=== PATIENT | female | born 1950 | race Caucasian/White ===

== ENCOUNTER → 2020-04-16 10:00 | Outpatient (CLI) | payer MEDICARE, SELFPAY ==
--- NOTE | ~2020-04-16 | MR_ITS ---
EXAMINATION: MR foot RT wo con DATE: 04/16/2020 10:50 INDICATION: Right foot pain TECHNIQUE: Magnetic resonance imaging (MRI) of the right foot was performed without intravenous contr ast. The toes are excluded on the sagittal and coronal images. Sequences included sagittal T1-weighte d FSE, sagittal fluid sensitive FSE STIR, coronal PD-weighted FS FSE, coronal T1-weighted FSE, axial PD-weighted FS FSE, and axial PD-weighted FSE. COMPARISON: Right foot radiographs dated 04/06/2020 FINDINGS: Bone alignment is normal. No fracture. There is prominent marrow edema and mild cystic change underly ing the medial margin of the talar dome with appearance favoring osteoarthritis with overlying chondr omalacia as the etiology rather than an osteochondral lesion. Additional small foci of likely osteoar thritis related mild subarticular edema at the the central navicular articular surface at the talonav icular joint and at the medial cuneiform at its articulation with the navicula. There is an approxima tely 10 x 8 mm region of low signal intensity mild thickening of the plantar aponeurosis immediately underlying the marker indicating the region of concern which is plantar to the medial cuneiform and c onsistent with a plantar fibroma. The medial and lateral stabilizing ligaments of the ankle are valeria l. The flexor and extensor tendons are normal. Intrinsic musculature of the foot is normal. Evident o nly on the axial images is osteoarthritis at the first metatarsophalangeal joint with additional suba rticular edema at the base of the first proximal phalanx. Postoperative change of prior osteotomy of the head of the right fifth proximal phalanx. IMPRESSION: 1. The lump of concern at the plantar aspect of the right foot corresponds to a small region of mild focal thickening of the plantar aponeurosis consistent with plantar fibroma. 2. Mild polyarticular osteoarthritis as detailed above. Reviewed, dictated and finalized at location B. IMPRESSION: 1. The lump of concern at the plantar aspect of the right foot corresponds to a small region of mild focal thickening of the plantar aponeurosis consistent wi th plantar fibroma. 2. Mild polyarticular osteoarthritis as detailed above.
== END ==
PROVIDERS: Visit Provider Orthopaedic Surgery
DX: M19.071 Primary osteoarthritis, right ankle and foot (principal)
CPT/HCPCS: 73718

== ENCOUNTER 2020-05-11 14:07 | Outpatient (CLI) | payer MEDICARE, SELFPAY ==
--- NOTE | ~2020-05-11 | MM_ITS ---
EXAMINATION: MM screening [facility] BI w nola HISTORY: Screening mammogram TECHNIQUE: Craniocaudal and mediolateral oblique 3-D tomosynthesis images were obtained and synthetic 2-D images were generated. CAD analysis was submitted and interpreted. COMPARISON: 03/31/2019, 11/21/2017, 08/17/2016 BREAST PARENCHYMAL COMPOSITION: There are scattered areas of fibroglandular density. FINDINGS: A stable mass in the subareolar aspect of the right breast is again noted, consistent with a benign finding. There is no evidence of suspicious mass, calcification, or architectural distortion to suggest malignancy in either breast. There has been no suspicious interval change. IMPRESSION: 1. No mammographic evidence of malignancy. 2. Recommend routine screening mammography in one year. BI-RADS Category 2: Benign finding(s). Reviewed, dictated and finalized at location A. FAT FRY COOK
== END 2020-05-11 14:08 | disposition home or self-care (01) ==
LOC: ANHIMG 14:12
PROVIDERS: PCP Family Medicine; Visit Provider Obstetrics & Gynecology
DX: Z12.31 Encounter for screening mammogram for malignant neoplasm of breast (principal)
CPT/HCPCS: 77063; 77067

== ENCOUNTER 2021-05-17 15:36 | Outpatient (CLI) | payer MEDICARE, SELFPAY ==
--- NOTE | ~2021-05-17 | MM_ITS ---
EXAMINATION: MM screening [facility] BI w nola HISTORY: Screening mammogram TECHNIQUE: Craniocaudal and mediolateral oblique 3-D tomosynthesis images were obtained and synthetic 2-D images were generated. CAD analysis was submitted and interpreted. COMPARISON: 04/10/2020, 03/31/2019, 11/21/2017 BREAST PARENCHYMAL COMPOSITION: There are scattered areas of fibroglandular density. FINDINGS: Again noted is a stable mass in the subareolar aspect of the right breast, consistent with a benign finding. There is no evidence of suspicious mass, calcification, or architectural distortion to suggest malignancy in either breast. There has been no suspicious interval change. IMPRESSION: 1. No mammographic evidence of malignancy. 2. Recommend routine screening mammography in one year. BI-RADS Category 2: Benign finding(s). Reviewed, dictated and finalized at location A. RNMENT GAUGER
== END 2021-05-17 15:37 | disposition home or self-care (01) ==
LOC: ANHIMG 15:37
PROVIDERS: PCP Physician Assistant; Visit Provider Obstetrics & Gynecology
DX: Z12.31 Encounter for screening mammogram for malignant neoplasm of breast (principal)
CPT/HCPCS: 77063; 77067

== ENCOUNTER 2022-08-16 13:37 | Outpatient (CLI) | payer MEDICARE, SELFPAY ==
--- NOTE | ~2022-08-16 | MM_ITS ---
EXAMINATION: MM screening [facility] BI w nola HISTORY: Screening mammogram TECHNIQUE: Craniocaudal and mediolateral oblique 3-D tomosynthesis images were obtained and synthetic 2-D images were generated. CAD analysis was submitted and interpreted. COMPARISON: 05/17/2021, 05/11/2020, 03/31/2019 bilateral screening mammogram examinations BREAST PARENCHYMAL COMPOSITION: There are scattered areas of fibroglandular density. FINDINGS: There is no evidence of suspicious mass, calcification, or architectural distortion to sugg est malignancy in either breast. There has been no suspicious interval change. IMPRESSION: 1. No mammographic evidence of malignancy. 2. Recommend routine screening mammography in one year. BI-RADS Category 1: Negative Reviewed, dictated and finalized at location A. N STATION AGENT
== END 2022-08-16 13:38 | disposition home or self-care (01) ==
PROVIDERS: PCP Physician Assistant; Visit Provider Physician Assistant
DX: Z12.31 Encounter for screening mammogram for malignant neoplasm of breast (principal)
CPT/HCPCS: 77063; 77067

== ENCOUNTER → 2023-08-30 13:39 | Outpatient (CLI) | payer MEDICARE, SELFPAY ==
--- NOTE | ~2023-08-30 | XR_ITS ---
EXAMINATION: XR shoulder RT min 2V INDICATION: Right shoulder pain TECHNIQUE: Four views of the right shoulder are submitted. COMPARISON: 05/31/2012 FINDINGS: Normal alignment. No fracture. Glenohumeral and acromioclavicular joint spaces are normal. Soft tissues are unremarkable. IMPRESSION: 1. No acute osseous abnormality. Reviewed, dictated and finalized at location F. ITECTURAL DESIGN PROFESSOR
--- NOTE | ~2023-08-30 | XR_ITS ---
EXAMINATION:XR_[id number]_CR DATE: 08/30/2023 14:00 INDICATION: Neck pain TECHNIQUE: AP, lateral, and odontoid views of the cervical spine are provided. COMPARISON: 05/31/2012 FINDINGS: There are 2 mm of anterolisthesis of C4 on C5. There is moderate loss of intervertebral dis c space height at C5-C6 and mild loss of disc space height at C3-4 and C6-7. The odontoid process is intact. No fracture is identified. The vertebral body heights are maintained. There is moderate uncov ertebral joint osteoarthritis on the right at C5-6. Prevertebral soft tissues are normal. IMPRESSION: 1. Moderate cervical spondylosis without acute findings. Reviewed, dictated and finalized at location F. GER ANALYTICAL
== END ==
PROVIDERS: PCP Chiropractor; Visit Provider Family Medicine
DX: M25.511 Pain in right shoulder (principal); M43.02 Spondylolysis, cervical region
CPT/HCPCS: 72040; 73030

== ENCOUNTER 2023-10-17 13:04 | Outpatient (CLI) | payer MEDICARE, SELFPAY ==
--- NOTE | ~2023-10-17 | MM_ITS ---
EXAMINATION: MM screening [facility] BI w nola HISTORY: Screening TECHNIQUE: Craniocaudal and mediolateral oblique 3-D tomosynthesis images were obtained and synthetic 2-D images were generated. CAD analysis was submitted and interpreted. COMPARISON: Comparison to multiple prior studies sequentially, with oldest reviewed study dated 05/02. BREAST PARENCHYMAL COMPOSITION: Not dense: There are scattered areas of fibroglandular density. FINDINGS: There is no evidence of suspicious mass, calcification, or architectural distortion to sugg est malignancy in either breast. There has been no suspicious interval change. IMPRESSION: 1. No mammographic evidence of malignancy. 2. Recommend routine screening mammography in one year. BI-RADS Category 1: Negative Reviewed, dictated and finalized at location B.
== END 2023-10-17 13:05 | disposition home or self-care (01) ==
LOC: ANHIMG 13:06
PROVIDERS: PCP Family Medicine; Visit Provider Obstetrics & Gynecology
DX: Z12.31 Encounter for screening mammogram for malignant neoplasm of breast (principal)
CPT/HCPCS: 77063; 77067

== ENCOUNTER 2024-03-24 12:05 | Outpatient (CLI) | payer MEDICARE, SELFPAY ==
[2024-03-24 12:35] LABS: Cholesterol 279 mg/dL (0-200); HDL Direct 71 mg/dL; Triglycerides 116 mg/dL (<150)
[2024-03-24 12:46] LABS: LDL Cholesterol Direct 154 mg/dL
== END 2024-03-24 12:06 | disposition home or self-care (01) ==
PROVIDERS: PCP Family Medicine; Visit Provider Family Medicine
DX: E78.2 Mixed hyperlipidemia (principal)
CPT/HCPCS: 36415; 80061

== ENCOUNTER 2024-11-19 13:37 | Outpatient (CLI) | payer MEDICARE, SELFPAY ==
--- NOTE | ~2024-11-19 | MM_ITS ---
EXAMINATION: MM screening fang BI w nola HISTORY: Screening TECHNIQUE: Craniocaudal and mediolateral oblique 3-D tomosynthesis images were obtained and synthetic 2-D images were generated. CAD analysis was submitted and interpreted. COMPARISON: Comparison to multiple prior studies sequentially, with oldest reviewed study dated 11/21. BREAST PARENCHYMAL COMPOSITION: Not dense: There are scattered areas of fibroglandular density. FINDINGS: There is no evidence of suspicious mass, calcification, or architectural distortion to sugg est malignancy in either breast. There has been no suspicious interval change. IMPRESSION: 1. No mammographic evidence of malignancy. 2. Recommend routine screening mammography in one year. BI-RADS Category 1: Negative Reviewed, dictated and finalized at location B.
--- OUTSIDE RECORDS SUMMARY | 2024-11-19 13:46 | XMS_ITS | Clinical Summary ---
Author Organization [facility] [address] [facility] Address [address] [place] [address] Care Team Providers Care Program Assistant Name Role Phone Nelli Gonsales Primary Care Provider [phone] Allergies No known active allergies Medications uhjuo-4x-eqd-ep a-fish oil 1,000-1,400 mg capsule,delayed release(DR/EC) omega3 1,000 mm-vky-pzv-other sy2a-dtst oil 1,400 mg capsule,delay rel Take by oral route. Active multivit with minerals/lutein (MULTIVITAMIN 50 PLUS ORAL) multivitamin Act adamaris ascorbic acid (VITAMIN C) 100 mg tablet Vitamin C Active calcium-vits Z4-L-G8-mineral s 166.75 mg- 166.75 unit capsule calcium Active SUMAtriptan (IMITREX) 50 mg tabletIndicatio ns:Migraine Take 1 tablet (50 mg total) by mouth once as needed for migraine May repeat after 2 hours. 10 tablet 2 Active buPROPion XL (WELLBUTRIN XL) 150 mg 24 hr tabletIndicatio ns:Moderate episode of recurrent major depressive disorder (HCC) Take 1 tablet (150 mg total) by mouth every morning 90 tablet 2 3 Active traZODone (DESYREL) 50 mg tablet TAKE 1-2 TABLETS BY MOUTH 1 HOUR PRIOR TO BEDTIME 45 tablet 3 4 Active rosuvastatin (CRESTOR) 10 mg tablet TAKE 1 TABLET BY MOUTH EVERY DAY 90 tablet 1 4 Active escitalopram (LEXAPRO) 10 mg tabletIndicatio ns:Moderate episode of recurrent major depressive disorder (HCC) TAKE 1 TABLET BY MOUTH EVERY DAY 90 tablet 2 4 Active olmesartan-amLO DIPin-hcthiazid 40-5-12.5 mg tablet TAKE 1 TABLET BY MOUTH EVERY DAY 90 tablet 2 4 Active Active Problems Problem Noted Date Diagnosed Date BMI 27.0-27.9,adult 04/24/2023 Assessment & Plan (05/06/2023 1:33 PM STOCK ROOM MANAGER): Weight/BMI is in healthy range. Continue healthy lifestyle to maintain. Medicare annual wellness visit, subsequent 04/04 Assessment & Plan (04/04/2023 6:00 PM CDT): Encouraged healthy lifestyle, good nutrition and exercise. Encouraged Calcium and Vitamin D and weight bearing exercise for bone health. Reviewed immunizations. Reviewed age appropirate screenings. Medicare Wellness Documentation is completed within the chart Need for immunization against influenza 04/04/20 23 Assessment & Plan (04/04/2023 6:01 PM CDT): Flu updated in the office today Fatigue 04/04/2023 Assessment & Plan (04/04/2023 6:01 PM CDT): Probably multifactorial. Check labs and followup to re-evaluate Need for pneumococcal vaccine 04/04/2023 Assessment & Plan (04/04/2023 6:01 PM CDT): Pneumonia 20 updated in the office today Primary insomnia 04/04/2023 Assessment & Plan (04/04/2023 5:58 PM CDT): This is a significant, separately identifiable problem that was evaluated and managed on the same day as the wellness exam Patient is having increased insomnia. States it comes and goes over the years has tried Ambien without satisfaction as it made her too drowsy and did wear things in the night. Discussed trazodone. Reviewed risks benefits alternatives side effects and proper use. Will do 1 tablet by 1 hour prior to bedtime for the next 3-4 weeks. If it does not seem to be enough can increase to 2. Follow-up in 2-3 months reassess or sooner for any problems or concerns Dysuria 12/03/2022 Assessment & Plan (12/03/2022 8:49 PM CDT): This is a significant, separately identifiable problem that was evaluated and managed on the same day as the wellness exam Patient has noted little bit more dysuria. Sometimes feels like she has right- sided flank pain but has a history of sciatica so unsure if it is intertwined. Will obtain an UA dip to rule out infection. Hyperglycemia 12/03/2022 Assessment & Plan (04/04/2023 6:00 PM CDT): Check labs Assessment & Plan (12/03/2022 8:49 PM CDT): Pre-diabetes/hyperglycemia is a precursor to Dm. Stressed importance of working on diet (decrease your simple sugars and one carbohydrate with each meal) and increase you exercise to achieve weight loss and this will help prevent you from progressing to diabetes. Colon cancer screening 12/03/2022 Assessment & Plan (12/03/2022 8:50 PM CDT): Due for colon cancer screening. Dr. Puentes did her last 1 in 2013. Will make referral back to [facility]. Right sided sciatica 12/03/2022 Assessment & Plan (12/03/2022 8:51 PM CDT): This is a significant, separately identifiable problem that was evaluated and managed on the same day as the wellness exam Encouraged NSAIDS (if able to safely tolerate) or Tylenol. Topical preparations like Lidocaine patches, Biofreeze, ICYHOT etc as needed. Heat, stretching Avoid long periods of sitting/laying. Encouraged PT. Followup if has any problems controlling bowels or bladder or if sxs worsen. Stage 3a chronic kidney disease 10/17/2020 Assessment & Plan (04/04/2023 5:58 PM CDT): Avoid nephrotoxic drugs including NSAIDs. Monitor labs. Assessment & Plan (12/03/2022 8:48 PM CDT): Avoid nephrotoxic drugs including NSAIDs. Monitor labs. Assessment & Plan (04/30/2022 3:51 PM CDT): Avoid nephrotoxic drugs including NSAIDs. Monitor labs. Assessment & Plan (10/05/2021 8:23 PM CDT): Avoid nephrotoxic drugs including NSAIDs. Monitor labs. Assessment & Plan (04/06/2021 3:36 PM CDT): Avoid nephrotoxic drugs including NSAIDs. Monitor labs. Assessment & Plan (10/17/2020 11:08 AM CDT): Avoid nephrotoxic drugs including NSAIDs. Monitor labs. Hypertension, renal disease, stage 1-4 or unspecified chronic kidney disease 09/19/2020 Assessment & Plan (04/04/2023 5:59 PM CDT): Bp is stable/in acceptable range for any co-morbidities. Encouraged to limit sodium intake and exercise for weight control. Continue Tribenzor 40//.5 Assessment & Plan (12/03/2022 8:47 PM CDT): Bp is stable/in acceptable range for any co-morbidities. Encouraged to limit sodium intake and exercise for weight control. Continue Tribenzor 40.5 Assessment & Plan (04/30/2022 3:48 PM CDT): Bp is stable/in acceptable range for any co-morbidities. Encouraged to limit sodium intake and exercise for weight control. Happy with the Tribenzor 11/19/2011 0.5 Assessment & Plan (10/05/2021 8:22 PM CDT): This is a significant, separately identifiable problem that was evaluated and managed on the same day as the wellness exam BP is still elevated running in the 135-140s. She is currently on Tribenzor 20.5. She has been tolerating without problems and willing to increase. Will increase to Tribenzor .. New prescription sent to pharmacy. She is to call in a week with readings Encouraged to limit sodium intake and exercise for weight control. Assessment & Plan (04/06/2021 8:56 PM CDT): Bp is stable/in acceptable range for any co-morbidities. Encouraged to limit sodium intake and exercise for weight control. Avoid nephrotoxic drugs including NSAIDs. Monitor labs. Assessment & Plan (10/17/2020 11:06 AM CDT): Bp is stable/in acceptable range for any co-morbidities. Encouraged to limit sodium intake and exercise for weight control. Happy with the tribenzor 19/11/11 Assessment & Plan (09/19/2020 12:41 AM CDT): Stop the valsartan/HCTZ and amlodipine Start tribenzor 19/11/11 Recheck bp in a few weeks to make sure stable. Mixed hyperlipidemia 09/19/2020 Assessment & Plan (05/06/2023 1:33 PM STOCK ROOM MANAGER): Encouraged patient to follow low fat/low chol diet like the Mediterranean diet. Increase good fats in the diet. Increase exercise. Monitor labs as needed. Lipids are not controlled. Discussed treatment options at length. She needs to be on some type of lipid lowering agent. Reviewed the statins risks benefits and alternatives. Reminded her that she had tolerated an smykt-dqeys-hvw dosing of the Livalo and this would be a possibility or trying a different statin. Also discussed the PSCK9s including risks benefits and alternatives. Attempted to answer all of her questions. Together we decided on starting Crestor 10 mg 1 daily if she feels like she can not tolerate she is going to decrease down to every other day. Encouraged activity along with Co Q10 to see if we can decrease some of her discomfort. Will recheck labs in 4-6 months to reassess. She may call at any time for assistance Assessment & Plan (04/04/2023 6:00 PM CDT): Encouraged patient to follow low fat/low chol diet like the Mediterranean diet. Increase good fats in the diet. Increase exercise. Monitor labs as needed. Patient stop the Livalo about 2 months ago. She states she feels like it makes her ache. Last year had similar complaints and had been doing 3 a week with good results. She states it started with the addition of the 4th. Discussed going back to 3 which she does not really want to do. Will recheck labs and see where the level is and if it is elevated again will encourage her to restart Livalo at 3 tablets each week as her a ASCVD 10 year risk is about 13.4% which is intermediate risk Assessment & Plan (12/03/2022 8:47 PM CDT): Encouraged patient to follow low fat/low chol diet like the Mediterranean diet. Increase good fats in the diet. Increase exercise. Monitor labs as needed. Continue Livalo 1 mg. She is going to increase it to 4 times a week meaning taking 1 mg 4 days of the week to see if she is able to tolerate this increase. Assessment & Plan (04/30/2022 3:50 PM CDT): Encouraged patient to follow low fat/low chol diet like the Mediterranean diet. Increase good fats in the diet. Increase exercise. Monitor labs as needed. Unable to tolerate the Livalo due to muscle pain. Encouraged to try to even just take1-2-3 times a week as tolerated to get some of the benefit. Assessment & Plan (10/05/2021 8:22 PM CDT): Encouraged patient to follow low fat/low chol diet like the Mediterranean diet. Increase good fats in the diet. Increase exercise. Monitor labs as needed. Continue Livalo Assessment & Plan (04/06/2021 8:56 PM CDT): Encouraged patient to follow fat/low chol diet like the Mediterranean diet. Increase good fats in the diet. Increase exercise. Monitor labs as needed. Assessment & Plan (10/17/2020 11:07 AM CDT): Encouraged patient to follow fat/low chol diet like the Mediterranean diet. Increase good fats in the diet. Increase exercise. Monitor labs as needed. Continue as much livalo as she can tolerate Assessment & Plan (09/19/2020 12:34 AM CDT): Encouraged patient to follow fat/low chol diet like the Mediterranean diet. Increase good fats in the diet. Increase exercise. Monitor labs as needed. Continue livalo Moderate episode of recurrent major depressive d isorder 09/19/2020 Assessment & Plan (05/06/2023 1:34 PM STOCK ROOM MANAGER): Stable with Lexapro 10 and Wellbutrin XL 150 Assessment & Plan (04/04/2023 6:00 PM CDT): Happy with Lexapro 10 mg and Wellbutrin XL 150. Refills available at pharmacy Assessment & Plan (12/03/2022 8:48 PM CDT): Stable with Lexapro 10 and Wellbutrin 150 Assessment & Plan (04/30/2022 3:51 PM CDT): Continue lexapro 5m g and Wellbutrin 150mg daily as sxs are well controlled Assessment & Plan (10/05/2021 8:23 PM CDT): Stable with the Lexapro 5 mg and Wellbutrin 150 Assessment & Plan (04/06/2021 3:37 PM CDT): Depression stable with Lexapro 5 mg and Wellbutrin 150. Refills available the pharmacy Assessment & Plan (10/17/2020 11:07 AM CDT): Stable with the lexapro and wellbutrin Assessment & Plan (09/19/2020 12:37 AM CDT): Continue lexapro and wellbutrin TMJ (dislocation of temporomandibular joint) Assessment & Plan (09/19/2020 12:34 AM CDT): Using baclofen prn History of melanoma 09/19/2020 Overview (09/19/2020): 2009 -- melanoma excised. Continues to follow annually with Derm Assessment & Plan (04/06/2021 3:36 PM CDT): Continue to follow with Dr. Siddiqi annually for her skin exam is Assessment & Plan (09/19/2020 12:37 AM CDT): Continue with Derm Basal cell carcinoma (BCC) of lateral canthus Resolved Problems Problem Noted Date Diagnosed Date Resolved Date Medicare annual wellness visit, subsequent 12/03/2022 12/03/2022 Assessment & Plan (12/03/2022 8:53 PM CDT): Encouraged healthy lifestyle, good nutrition and exercise. Encouraged Calcium and Vitamin D and weight bearing exercise for bone health. Reviewed immunizations. Reviewed age appropirate screenings. Medicare Wellness Documentation is completed within the chart BMI 28.0-28.9,adult 11/29/2022 04/24/20 23 Assessment & Plan (04/04/2023 5:58 PM CDT): Weight/BMI is in healthy range. Continue healthy lifestyle to maintain. Assessment & Plan (11/29/2022 10:34 AM CDT): Weight/BMI is in healthy range. Continue healthy lifestyle to maintain. BMI 27.0-27.9,adult 04/30/2022 11/30/19 23 Assessment & Plan (04/30/2022 3:51 PM CDT): Weight/BMI is in healthy range. Continue healthy lifestyle to maintain. Flu vaccine need 04/30/2022 12/03/2022 Assessment & Plan (04/30/2022 3:51 PM CDT): Updated in the office today Need for 23-polyvalent pneum ococcal polysaccharide vaccine 04/30/2022 12/03/2022 Assessment & Plan (04/30/2022 3:54 PM CDT): Updated in office today Breast cancer screening by mammogram 04/30/2022 12/03/2022 Assessment & Plan (04/30/2022 3:54 PM CDT): Mammogram order provided Fatigue 04/30/2022 12/03/2022 Assessment & Plan (04/30/2022 3:54 PM CDT): Probably multifactorial. Check labs and followup to re-evaluate Medicare annual wellness visit, subsequent 04/30/2022 12/03/2022 Assessment & Plan (04/30/2022 3:54 PM CDT): Encouraged healthy lifestyle, good nutrition and exercise. Encouraged Calcium and Vitamin D and weight bearing exercise for bone health. Reviewed immunizations. Reviewed age appropirate screenings. Medicare Wellness Documentation is completed within the chart BMI 26.0-26.9,adult 10/05/2021 04/30/20 22 Assessment & Plan (10/05/2021 2:13 PM CDT): Weight/BMI is in healthy range. Continue healthy lifestyle to maintain. Annual physical exam 10/05/2021 023 Assessment & Plan (12/03/2022 8:48 PM CDT): Encouraged healthy lifestyle, good nutrition and exercise. Encouraged Calcium and Vitamin D and weight bearing exercise for bone health. Reviewed immunizations Reviewed age appropirate screenings. Assessment & Plan (10/05/2021 8:23 PM CDT): Encouraged healthy lifestyle, good nutrition and exercise. Encouraged Calcium and Vitamin D and weight bearing exercise for bone health. Reviewed immunizations Reviewed age appropirate screenings. Breast cancer screening by mammogram 04/06/2021 10/05/2021 Assessment & Plan (10/05/2021 8:23 PM CDT): Mammogram order provided Assessment & Plan (04/06/2021 3:34 PM CDT): Mammogram order provided. Flu vaccine need 04/06/2021 10/05/2021 Assessment & Plan (04/06/2021 3:34 PM CDT): Vaccine updated in office today Medicare annual wellness visit, initial 04/04/2021 10/05/2021 Assessment & Plan (04/06/2021 3:35 PM CDT): Encouraged healthy lifestyle, good nutrition and exercise. Encouraged Calcium and Vitamin D and weight bearing exercise for bone health. Reviewed immunizations. Reviewed age appropirate screenings. Medicare Wellness Documentation is completed within the chart BMI 26.0-26.9,adult 04/04/2021 10/06/19 Assessment & Plan (04/04/2021 2:14 PM CDT): Weight/BMI is in healthy range. Continue healthy lifestyle to maintain. Family history of diabetes mellitus 09/19/2020 10/17/2020 Assessment & Plan (09/19/2020 12:36 AM CDT): Check labs Fatigue 09/19/2020 10/17/2020 Assessment & Plan (09/19/2020 12:36 AM CDT): Probably multifactorial. Check labs and followup to re-evaluate Annual physical exam 09/19/2020 021 Assessment & Plan (09/19/2020 12:34 AM CDT): Encouraged healthy lifestyle, good nutrition and exercise. Encouraged Calcium and Vitamin D and weight bearing exercise for bone health. Reviewed immunizations Reviewed age appropirate screenings. BMI 26.0-26.9,adult 08/26/2020 04/04/20 Assessment & Plan (09/29/2020 2:33 PM CDT): Weight/BMI is in healthy range. Continue healthy lifestyle to maintain. Assessment & Plan (08/26/2020 1:08 PM STOCK ROOM MANAGER): Weight/BMI is in healthy range. Continue healthy lifestyle to maintain. Immunizations Immunization Administration Dates Next Due Influenza, Quadrivalent, Hig h Dose, Preservative Free, Intrr 04/04/2023,04/05/2022,04/04/2021,03/16 Pneumococcal Conjugate Pcv20 04/04/2023 Pneumococcal Polysaccharide PPV23 04/05/2022 RSV Vaccine, Pref, Recombina nt, Subunit, Adjuvanted, PF, IM (Arexvy) 03/05/2024 Tdap 01/27/2018 ZOSTER Recombinant 12/12/2019,08/30/2019 Medical History Medical History Date Comments Hypertension Family History Medical History Relation Name Comments Arthritis Father Arthritis Mother Hyperlipidemia Mother Hypertension Mother Relation Name Status Comments Father Mother Social History Tobacco Use Types Packs/Day Years Used Date Smoking Tobacco: Former Smokeless Tobacco: Never Tobacco Cessation:Counseling Given: Not Answered AUDIT-C Answer Date Recorded Q1: How often do you have a drink containing alcohol? Never 04/24/2023 Q2: How many drinks containi ng alcohol do you have on a typical day when you are drinking? Patient does not drink Q3: How often do you have si x or more drinks on one occasion? Never 04/24/2023 PHQ-2 Answer Date Recorded PHQ-2 Total Score (If total score is 3 or more points, staff should administer the PHQ-9) 0 04/24/2023 Personal Safety Answer Date Recorded Getting School Help Needed Not on file 06/12 Comments Unknown Sex and Gender Information Value Date Recorded Sex Assigned at Not on file Legal Sex Female 8:16 PM STOCK ROOM MANAGER Gender Identity Not on file Sexual Orientation Not on file Obstetrics History Last Filed Vital Signs Vital Sign Reading Time Taken Comments Blood Pressure 116/72 04/24/2023 1:19 PM CDT Pulse 65 04/24/2023 1:19 PM CDT Temperature 37.1 C (98.7 F) 04/24/2023 1:19 PM CDT Respiratory Rate - - Oxygen Saturation 96% 04/24/2023 1:19 PM CDT Inhaled Oxygen Concentration - - Weight 65.2 kg (143 lb 12.8 oz) 04/24/2023 1:19 PM CDT Height 153 cm (5' 0.24 ) 04/24/2023 1:19 PM CDT Body Mass Index 27.86 04/24/2023 1:19 PM CDT Plan of Treatment Health Maintenance Due Date Last Done Comments Hepatitis C Screening 1950 Osteoporosis Screening-Bone Density Scan 1950 Hepatitis B Screening 1968 Colon Cancer Screening-Colonoscopy 12/26/2023 12/25/2013 Well Visit 65+ 04/04/2024 04/04/2023, 11/01, 04/05/2022, Additional history exists Depression Screening 04/24/2024 04/24/2023, 04/04/2023, 11/29/2022, Additional history exists Fall Risk Assessment 04/24/2024 04/24/2023, 04/04/2023, 11/29/2022, Additional history exists Influenza Vaccine (Season Ended) 2025 04/04/2023, 04/05/2022, 04/04/2021, Additional history exists DTaP/Tdap/Td Vaccine (2 - Td or Tdap) 01/28/2028 01/27/2018 Zoster Vaccine Completed 12/12/2019, 08/30/2019 Breast Cancer Screening-Mammogram Discontinued 08/16/2022, 05/17/2021, 05/11/2020 Pneumococcal vaccine 65+ Completed 04/04/2023, 10/2021 Procedures Procedure Name Priority Date/Time Associated Diagnosis Comments SCREENING MAMMOGRAM BILATERAL W SHAKA Schedule Routine, Read Routine (OP Routine) 08/16/2022 Breast cancer screening by mammogram COLONOSCOPY Routine 12/25/2013 from Last 3 Months or Most Recently Relevant to Health Maintenance Results * Screening Mammogram Bilateral W Shaka (08/16/2022) Anatomical Region Laterality Modality Breast Bilateral Mammography us Nelli COLON IMG MAMMO PROCEDURES Final Result * HM COLONOSCOPY (12/25/2013) us Huseyin Puentes MD HEALTH MAINTENANCE Final Resu lt from Last 3 Months or Most Recently Relevant to Health Maintenance Insurance [employer] MEDICARE AETNA MEDICARE Care Teams Program Assistant Relationship Specialty Start Date End Date Nelli Gonsales PA [address] [facility] [address] [place] [address] PCP - General Family Medicine 02/22/24
--- OUTSIDE RECORDS SUMMARY | 2024-11-19 13:46 | XMS_ITS | Data Portability ---
Author Organization [facility] - Anne Marie Head, Telehealth Address [address], [address] [place] [address] Care Team Providers Care Bookkeepers Supervisor Name Role Phone KEIRA DEVINE Primary Care Provider [phone] Assessment Encounter Date Assessment Date Assessment LastModified by Organization Details LastModified Time 05/07/2018 05/07/2018 benign nevi-not suspicious Seborrheic keratoses - diagnosis reviewed. Pt reassured. Lentigines - diagnosis reviewed. Avoid sun exposure and use sun protection. Angioma - diagnosis reviewed. Pt. reassured. history of nonmelanoma skin cancer-no evidence of recurrence History of melanoma - no evidence of local or regional recurrence. fbse in 1 yr Not available 05/07/2018 15:11:02 03/23/2020 03/23/2020 Milia- diagnosis reviewed. Pt reassured. Seborrheic keratoses - diagnosis reviewed. Pt reassured. cosmetic LN x 1, R lateral jawline subcutaneous nodule, R plantar discussed possible growth vs scar/tendon thickening rec f/u with Dr Lin for possible referral to orthopedics benign nevi-not suspicious history of nonmelanoma skin cancer-no evidence of recurrence History of melanoma - no evidence of local or regional recurrence. fbse 1 yr Not available 03/28/2020 17:09:07 08/22/2021 08/22/2021 Epidermal cysts, noninflamed, L medial cheek- diagnosis reviewed. Discussed no treatment vs excision No treatment desired Angioma - diagnosis reviewed. Patient reassured. Discussed no treatment needed. Benign nevi-discussed not suspicious Seborrheic keratoses - diagnosis reviewed. Pt reassured. Discussed no treatment needed. History of nonmelanoma skin cancer-no evidence of recurrence History of melanoma - no evidence of local or regional recurrence. fbse 1 yr Photoprotection discussed. Use of a broad-spectrum sunscreen SPF 30 or higher recommended. Not available 08/22/2021 15:09:34 10/17/2022 10/17/2022 Seborrheic keratoses - diagnosis reviewed. Pt reassured. Discussed no treatment needed. Angioma - diagnosis reviewed. Patient reassured. Discussed no treatment needed. Benign nevi-discussed not suspicious Recommend monitor for changes. History of nonmelanoma skin cancer-no evidence of recurrence History of melanoma - no evidence of local or regional recurrence. fbse 1 yr Photoprotection discussed. Use of a broad-spectrum sunscreen SPF 30 or higher recommended. Not available 10/17/2022 15:11:44 06/30/2024 06/30/2024 Inflamed and crusted SK(s) L lateral thigh and midchest-Discusse d benign. Discussed treatment options of no rx vs LN pt elects no treatment patient elects trial with otc hydrocortisone 1% cr BID x 2 weeks with flares midchest Seborrheic keratoses - diagnosis reviewed. Pt reassured. Discussed no treatment vs return for cosmetic LN Benign nevi-discussed not suspicious Recommend monitor for changes. History of nonmelanoma skin cancer-no evidence of recurrence History of melanoma - no evidence of local or regional recurrence. fbse 1 yr Photoprotection discussed. Use of a broad-spectrum sunscreen SPF 30 or higher recommended. Not available 06/30/2024 14:37:25 Plan of Treatment Reminders Order Date Submit Date Provider Last Modified By Organization Details Last Modified Time Details Appointments None record ed. Lab None record ed. Referral None record ed. Procedures None record ed. Surgeries None record ed. Imaging None record ed. Medication Orders None record ed. Patient TargetsNo targets recorded. Patient InstructionsNo instructions recorded. Reason for Referral None Reported. Problems Name Problem SNOMED Code Status Onset Date Resolution Date Notes Provider Name and Address Organization Details Recorded Time Malignant melanoma 767201687 Active 017 08/2009 0.4mm back-B cornelio Siddiqi MD [address] [facility], [address], [place], [address] [place] [address] - Anne Marie Siddiqi MD 7 11:15:45 Basal cell carcinoma of skin 424671116 Active 017 08/2015 R lat elva s-Margi tuttle/Santos Siddiqi MD [address] [place] [address], [address], [place], [address], RAKAN Siddiqi MD 7 11:15:31 Notes:2010, back Problem Notes None recorded. Procedures Surgical History Date Name Laterality Status Provider Name and Address Organization Details Recorded Time 03/23/20 20 Cryosurgery benign lesions 1 completed Anne Marie Siddiqi MD [address] [place] [address], [address], [place], [address], RAKAN Siddiqi MD 03/28/2020 17:09:03 08/16/19 18 Biopsy completed Uday Siddiqi MD 08/16/2017 14:41:02 08/03/19 17 Cryosurgery aks completed Anne Marie Siddiqi MD [address] [place] [address], [address], [place], [address], RAKAN Siddiqi MD 08/03/2016 14:48:31 08/03/19 17 Cryosurgery benign lesions 1 completed Anne Marie Siddiqi MD [address] [place] [address], [address], [place], [address], RAKAN Siddiqi MD 08/03/2016 14:49:12 08/03/19 17 Cryosurgery benign lesions 2 completed Anne Marie Siddiqi MD [address] [place] [address], [address], [place], [address], RAKAN Siddiqi MD 08/03/2016 22:56:11 Imaging Results None recorded. Procedure Notes None recorded. Medical Equipment None Reported. Allergies No known drug allergies Medications Name Sig Start Date Stop Date Status Note LastModified by Organization Details LastModified Time celecoxib 200 mg capsule TAKE 1 CAPSULE BY MOUTH EVERY DAY active Not Available Not Available No t Available trazodone 50 mg tablet TAKE 1 TABLET BY MOUTH EVERY DAY AT BEDTIME NEEDED FOR INSOMNIA active Not Available Not Available No t Available ofloxacin 0.3 % eye drops INSTILL 1 DROP INTO THE LEFT EYE FOUR TIMES PER DAY FOR 7 DAYS AFTER SURGERY active Not Available Not Available No t Available hydrocodone 5 mg-acetamin ophen 325 mg tablet TAKE 1 TABLET BY MOUTH EVERY 6 HOURS NEEDED FOR PAIN FOR 7 DAYS active Not Available Not Available No t Available valsartan 160 mg-hydrochl orothiazide 12.5 mg tablet active Not Available Not Available Not Available sumatriptan 50 mg tablet active Not Available Not Available Not Available penicillin V potassium 500 mg tablet 08/22 completed Not Available Not Available Not Available amlodipine 2.5 mg tablet 08/22 completed Not Available Not Available Not Available amlodipine 5 mg tablet 08/22 completed Not Available Not Available Not Available sulfamethox azole 800 mg-trimetho prim 160 mg tablet 03/23 completed Not Available Not Available Not Available oxycodone-a cetaminophe n 5 mg-325 mg tablet TAKE 1 TABLET BY MOUTH EVERY 4 HOURS NEEDED FOR PAIN active Not Available Not Available No t Available prednisolon e acetate 1 % eye drops,suspe nsion INSTILL 1 DROP INTO THE LEFT EYE 3 TIMES PER DAY FOR 14 DAYS AFTER SURGERY active Not Available Not Available No t Available lorazepam 0.5 mg tablet 08/16 completed Not Available Not Available Not Available diazepam 2 mg tablet 08/03 completed Not Available Not Available Not Available baclofen 10 mg tablet TAKE 1 TABLET BY MOUTH EVERY DAY AT BEDTIME NEEDED NECK PAIN active Not Available Not Available No t Available benzonatate 100 mg capsule 08/16 completed Not Available Not Available Not Available tacrolimus 0.1 % topical ointment use to affected areas on the eyelids BID with flares 08/22 completed Not Available Not Available Not Available oseltamivir 75 mg capsule 08/16 completed Not Available Not Available Not Available nystatin 100,000 unit/gram topical cream APPLY TOPICALLY TWICE A DAY active Not Available Not Available No t Available ranitidine 150 mg tablet 08/22 completed Not Available Not Available Not Available fluorometho lone 0.1 % eye drops,suspe nsion 08/16 completed Not Available Not Available Not Available pravastatin 20 mg tablet 08/16 completed Not Available Not Available Not Available loteprednol etabonate 0.5 % eye drops,suspe nsion INSTILL ONE DROP INTO LEFT EYE TWICE DAILY FOR 1 MONTH active Not Available Not Available No t Available Aspir-81 mg tablet,darlin yed release Take 1 tablet every day by oral route. active Not Available Not Available No t Available ondansetron 4 mg disintegrat ing tablet 08/16 completed Not Available Not Available Not Available fluticasone propionate 50 mcg/actuati on nasal spray,suspe nsion active Not Available Not Available Not Available amoxicillin 875 mg-potassiu m clavulanate 125 mg tablet 02/08 completed Not Available Not Available Not Available valsartan 160 mg-hydrochl orothiazide 25 mg tablet active Not Available Not Available Not Available escitalopra m 10 mg tablet TAKE 1 TABLET BY MOUTH EVERY DAY active Not Available Not Available No t Available rosuvastati n 10 mg tablet TAKE 1 TABLET BY MOUTH EVERY DAY active Not Available Not Available No t Available bupropion HCl XL 300 mg 24 hr tablet, extended release 08/22 completed Not Available Not Available Not Available bupropion HCl XL 150 mg 24 hr tablet, extended release active Not Available Not Available Not Available Boostrix Tdap 2.5 Lf unit-8 mcg-5 Lf/0.5 mL intramuscul ar syringe 03/23 completed Not Available Not Available Not Available Vitamin C active Not Available Not Cori ilable Not Available Co Q-10 active Not Available Not Avail able Not Available calcium active Not Available Not Avail able Not Available multivitami n active Not Available Not Available Not Available pitavastati n calcium 1 mg tablet TAKE 1 TABLET BY MOUTH EVERY DAY active Not Available Not Available No t Available Livalo 2 mg tablet 08/22 completed Not Available Not Available Not Available olmesartan 20 mg-amlodipi ne 5 mg-hydrochl orothiazide 12.5 mg tablet active Not Available Not Available Not Available olmesartan 40 mg-amlodipi ne 5 mg-hydrochl orothiazide 12.5 mg tablet TAKE 1 TABLET BY MOUTH EVERY DAY active Not Available Not Available No t Available omega3 1,000 mg-dha-epa- other rn6q-wsgt oil 1,400 mg capsule,del ay rel Take by oral route. active Not Available Not Available No t Available Lorena Assist 100 million cell oral powder packet Take by oral route. active Not Available Not Available No t Available Shingrix (PF) 50 mcg/0.5 mL intramuscul ar suspension, kit 03/23 completed Not Available Not Available Not Available Fluzone High-Dose Quad (PF) 240 mcg/0.7 mL IM syringe 03/23 completed Not Available Not Available Not Available Vitals Date Recorded Body temperature Provider Name a nd Address Organization Details Last Updated DateTime 03/23/2020 97.9 [degF] Malia Jacksonsherri Head 03/23/2020 13:53:50 Social History Question Answer Notes LastModified by Organizat ion Details LastModified Time Tobacco Smoking Status Former Smoker Anne Marie Siddiqi MD [address] [facility], [address], [place], [address] RAKAN Siddiqi MD 08/03/2016 22:51:59 In The 14 Days Before Symptom Onset, Have You Had Close Contact With A Laboratory-confirm ed COVID-19 While That Case Was Ill? No Information n ot available 03/23/2020 In The 14 Days Before Symptom Onset, Have You Had Close Contact With A Person Who Is Under Investigation For COVID-19 While That Person Was Ill? No Information not available 03/23/2020 Have You Been To An Area Known To Be High Risk For COVID-19? No Information not available 03/23/2020 Does Patient Have Any Fever, Cough, Sore Throat Or New Shortness Of Breath? No Information not available 03/23/2020 What Was The Date Of Your Most Recent Tobacco Screening? 06/30/2024 [email or web address] Information not available 06/30/2024 Sun Exposure Minimal Information not available 08/03/2016 Do You Use Sunscreen Routinely? Yes Information not available 08/03/2016 Tanning Bed Exposure No Information not available 08/03/2016 How Many Years Have You Smoked Tobacco? 8 Information not available 08/03/2016 Sex: Unknown Functional Status Question Answer Note LastModified by Organizat ion Details LastModified Time What is your level of alcohol consumption? Occasional Information not available 08/03/2016 Mental Status None recorded. Family History Relationship Description Onset Age of this Age Resolved Age Notes LastModified by Organization Details LastModified Time Mother Hypertensive disorder Not available 2016 22:51:46 Sister Hypertensive disorder Not available 2016 22:51:46 Medical History Condition Response Diabetes N Bleeding Disorder N Arthritis N Hyperthyroidism N Defibrillator N Cancer Y Stroke N Asthma N Hypothyroidism N Lupus N HIV/AIDS N Pacemaker N Anemia N Psoriasis N Hepatitis N Heart Disease N Hypertension N Gynecological HistoryNo gynecological history recorded. Obstetrics History GPAL:G 0 P 0 0 0 0 Past Encounters Encounter ID Performer Location Encounter Start Date Encounter Closed Date Diagnosis/Indication Diagnosis SNOMED-CT Code Diagnosis ICD10 Code Diagnosis Note [id number] Anne Marie Siddiqi MD Main Office [address] [place], [place] [address] 7 08/03/2016 13:36:20 08/03/2016 14:56:02 Actinic keratosis 461969476 L57.0 Senile hyperkeratosis 39 3054476 L82.1 Inflamed s eborrheic keratosis 754023735 L82.0 History of malignant melanoma of the skin 6285469829 08 Z85.820 [id number] Anne Marie Siddiqi MD Main Office [address] [place] [address] 7 02/08/2017 11:38:50 02/08/2017 13:02:31 Melanocytic nevus of trunk 977809402 D22.5 Melanocyti c nevus of skin of thigh 230062097 D22.71 History of malignant melanoma of the skin 2822624890 08 Z85.820 Traumatic onycholysis 40 1387749 L60.1 [id number] Anne Marie Siddiqi MD Main Office [address] [place], [place] [address] 7 08/16/2017 13:33:54 08/16/2017 14:54:21 Eczematous dermatitis of eyelid 09669586 H01.131 Neoplasm o f uncertain behavior of skin 23413578 D48.5 Melanocyti c nevus of trunk 345894097 D22.5 History of malignant melanoma of the skin 4147183324 08 Z85.820 [id number] Anne Marie Siddiqi MD Main Office [address] [place], [place] [address] 7 05/07/2018 14:07:27 05/07/2018 15:16:41 Melanocytic nevus of face 900268497 D22.30 Melanocyti c nevus of trunk 702209128 D22.5 Lentigo 564613196 L81.4 History of malignant melanoma of the skin 1586684901 08 Z85.820 [id number] Anne Marie Siddiqi MD Main Office [address] [place] [address] 03/23/2020 13:30:07 03/23/2020 14:23:44 Milia 219522612 L72.0 Senile hyperkeratosis 39 5720424 L82.1 Subcutaneous nodule 9532 5000 R22.9 History of malignant melanoma of the skin 8830787919 08 Z85.820 [id number] Anne Marie Siddiqi MD Main Office [address] [place] [address] 7 08/22/2021 14:36:41 08/22/2021 15:14:22 Epidermoid cyst of skin 416995159 L72.0 Hemangioma of skin 61145 006 D18.01 Melanocyti c nevus of trunk 342471253 D22.5 History of malignant melanoma of the skin 2004119832 08 Z85.820 [id number] Anne Marie Siddiqi MD Main Office [address] [place] [address] 7 10/17/2022 14:26:07 10/17/2022 15:30:33 Seborrheic keratosis 378158126 L82.1 Hemangioma of skin 15041 006 D18.01 Melanocyti c nevus of trunk 469654754 D22.5 History of malignant melanoma of the skin 3438014167 08 Z85.820 [id number] Anne Marie Siddiqi MD Main Office [address] [place] [address] 06/30/2024 14:02:39 06/30/2024 14:39:27 Inflamed seborrheic keratosis 611814986 L82.0 Seborrheic keratosis 394 962835 L82.1 Melanocyti c nevus of trunk 129548641 D22.5 History of malignant melanoma of the skin 2464168863 08 Z85.820 Health Concerns Section Related Observation LastModified by Organization Detai ls LastModified Time None Recorded Concern Status LastModified by Organization Details LastModified Time None Recorded Advance Directives Directive None Recorded Payers Encounter Date Sequence Insurance Name Policy Number Policy Malave Covered Member ID Malave Member ID Guarantor Name 05/07/2018 1 [facility] (MEDICARE REPLACEMENT/ ADVANTAGE - PPO) [id number] Shanika Song [id number] Shanika Song 03/23/2020 1 [facility] (MEDICARE REPLACEMENT/ ADVANTAGE - PPO) [id number] Shanika Song [id number] Shanika Song 08/22/2021 1 [facility] (MEDICARE REPLACEMENT/ ADVANTAGE - PPO) [id number] Shanika Song [id number] Shanika Song 10/17/2022 1 [employer] (PPO) [id number] Shanika Song [id number] Shanika Song 06/30/2024 1 *SELF PAY* [employer] Alysha Song Notes Date Note Type Note Provider Name and Address Organization Details Recorded Time 05/07/2018 text/html fbseno concerns today no bleeding spots, changing moles, or sores that don't want to heal.no f/c, no cough, no wt loss Anne Marie Siddiqi MD [address] [place] [address], [address], [place], [address], [facility] Anne Marie Siddiqi MD 05/08/2018 23:07:35 03/23/2020 text/html COVID-19 protoco l. Pt waited in car prior to appt, called in for visit for checkin and rooming. Patient screening questions performed during call in car: No fever, cough, loss of taste or smell, or shortness of breath. Patient denies current diagnosis or pending testing of COVID-19 or recent exposure to any individual with known or current testing for COVID-19. Patient and staff masked for duration of visit. Full Body Check R plantar footBumpX 3 weeks agoPedicurist felt the bump 3 weeks agoNo pain, itching or bleedingnot tender to the touch rough area on the R cheekhad treated with LN in the past and went awayit has come back and interested in removal also with bumps can feel back of the L neck no other bleeding spots, changing moles, or sores that don't want to heal.no f/c, no cough, no wt loss Anne Marie Siddiqi MD [address] [place] [address], [address], [address], RAKAN Siddiqi MD 03/28/2020 17:09:25 08/22/2021 text/html COVID-19 protoco l. Patient and any caregivers present screened to confirm no fever, cough, loss of taste or smell, or shortness of breath. Patient and any caregivers deny current diagnosis or pending testing of COVID-19 or recent exposure to any individual with known or current testing for COVID-19. Patient and caregivers masked while in office. full body check bumps on facenot bleeding or itching no other bleeding spots, changing moles, or sores that don't want to heal.no f/c, no cough, no wt loss Anne Marie Siddiqi MD [address] [place] [address], [address], RAKAN Siddiqi MD 08/28/2021 21:40:53 10/17/2022 text/html COVID-19 protoco l. Patient and any caregivers/family present screened to confirm no current COVID-19 symptoms, diagnosis, or recent known exposure to COVID-19 virus. Full body skin check spot on right upper thighX 4 monthsraisedno treatment no other bleeding spots, changing moles, or sores that don't want to heal.No fever/chill, no persistent cough, no unintentional weight loss Anne Marie Siddiqi MD [address] [place] [address], [facility] [address], [place], [address], RAKAN Siddiqi MD 10/22/2022 21:43:51 06/30/2024 text/html Full body skin c heck spot on L thighx since summerpatient states spot is a lump and looks like a scabno at home treatment also with raised areas that rub on the bra on the midchest area under the brashe notes her PCP gave her nystatin to use but this is not helpingnot sore or tender also rough area can feel on the lower backnot bothersome no other bleeding spots, changing moles, or sores that don't want to heal.No fever/chill, no persistent cough, no unintentional weight loss Anne Marie Siddiqi MD [address] [place] [address], [facility] [address], [place], [address], RAKAN - Anne Marie Siddiqi MD 07/07/2024 17:31:02 OBGyn Episode No OBEpisode recorded.
--- OUTSIDE RECORDS SUMMARY | 2024-11-19 13:46 | XMS_ITS | Referral Summary ---
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 Active multivit with minerals/lutein (MULTIVITAMIN 50 PLUS ORAL) multivitamin Act adamaris ascorbic acid (VITAMIN C) 100 mg tablet Vitamin C Active calcium-vits M5-D-U1-mineral s 166.75 mg- 166.75 unit capsule calcium [...] 04/24/2023 Assessment & Plan (05/06/2023 1:33 PM BI ANALYST): Weight/BMI is in healthy range. Continue healthy [...] in 2013. Will make referral back to [facility] GI. Right sided sciatica 12/03/2022 Assessment & [...] 09/19/2020 Assessment & Plan (05/06/2023 1:33 PM BI ANALYST): Encouraged patient to follow low fat/low chol diet like the Mediterranean diet. Increase good fats in the diet. Increase exercise. Monitor labs as needed. Lipids are not controlled. Discussed treatment options at length. She needs to be on some type of lipid lowering agent. Reviewed the statins risks benefits and alternatives. Reminded her that she had tolerated an deevd-qqdap-zbq dosing of the Livalo and this would [...] 09/19/2020 Assessment & Plan (05/06/2023 1:34 PM BI ANALYST): Stable with Lexapro 10 and Wellbutrin XL [...] maintain. Assessment & Plan (08/26/2020 1:08 PM BI ANALYST): Weight/BMI is in healthy range. Continue healthy lifestyle to maintain. Immunizations Immunization Administration Dates Next Due Influenza, Quadrivalent, Hig h Dose, Preservative Free, Intrr 04/04/2023,04/05/2022,04/04/2021,03/16 Pneumococcal Conjugate Pcv20 04/04/2023 Pneumococcal Polysaccharide PPV23 04/05/2022 RSV Vaccine, Pref, Recombina nt, Subunit, Adjuvanted, PF, IM (Arexvy) 03/05/2024 Tdap 01/27/2018 ZOSTER Recombinant 12/12/2019,08/30/2019 Social History Tobacco Use Types Packs/Day Years [...] on file Legal Sex Female 8:16 PM BI ANALYST Gender Identity Not on file Sexual Orientation Not on file Last Filed Vital Signs Vital Sign Reading [...] 04/24/2023 1:19 PM CDT Plan of Treatment Not on file Procedures Procedure Name Priority Date/Time Associated Diagnosis [...] Most Recently Relevant to Health Maintenance Insurance [facility] MEDICARE Get[employer] MEDICARE Care Teams Channel Cementer Insole Machine Relationship Specialty Start Date End Date Nelli Gonsales PA [address] [facility] [address] [place] [address] PCP - General Family Medicine 02/22/24
== END 2024-11-19 13:38 | disposition home or self-care (01) ==
LOC: ANHIMG 13:37
PROVIDERS: PCP Family Medicine; Visit Provider Obstetrics & Gynecology
DX: Z12.31 Encounter for screening mammogram for malignant neoplasm of breast (principal)
CPT/HCPCS: 77063; 77067